=== PATIENT | male | born 1980 | race Hispanic/Latino ===

== ENCOUNTER 2017-11-10 15:31 | Emergency (ER) | payer OTHER, SELFPAY ==
[2017-11-10] MEDS ORDERED: NA CHLORIDE 0.9% 1,000 ML ONE (15:48)
[2017-11-10 16:04] LABS: Protime INR 1.06
[2017-11-10 16:21] LABS: ALT/SGPT 85 U/L (12-78); AST/SGOT 25 U/L (15-37); Albumin 3.9 g/dL (3.4-5.0); Alkaline Phosphatase 64 U/L (45-117); BUN Blood Urea Nitrogen 12 mg/dL (7-18); Bicarbonate 26 mmol/L (21-32); Bilirubin Direct 0.2 mg/dL (0-0.2); Bilirubin Total 0.7 mg/dL (0.2-1.0); Glucose Level 95 mg/dL (74-106); Potassium 3.4 mmol/L (3.5-5.1); Protein, Total 6.9 g/dL (6.4-8.2); Sodium Level 144 mmol/L (136-145)
[2017-11-10 16:22] LABS: Alcohol Serum/Plasma < 3 mg/dL (0-3)
--- NOTE | 2017-11-10 17:26 | EDPHYS ---
Physician Documentation [facility] Name: Tolu Snider Age: 37 yrs Sex: Male : 1980 Arrival Date: 11/10/2017 Time: 15:33 Bed 4 Private MD: ED Physician Benny Early HPI: 11/10 15:41 This 37 yrs old Male presents to ER via EMS with complaints of possible drug rn overdose. 15:41 Per EMS, found in hot vehicle . rn 15:42 EMS states found in hot vehicle, side of road, AC off, unsure length of time there, rn police states hx of drug overdose, patient states took 4 norco tablets for his chronic pain, denies other drugs or ETOH, was sonorous on scene, given narcan by EMS with immediate response. Pt denies suicidal thoughts or intention.. Onset: The symptoms/episode began/occurred just prior to arrival. Severity of symptoms: At their worst the symptoms were moderate in the emergency department the symptoms have improved. The patient has experienced similar episodes in the past. The patient has not recently seen a physician. Historical: - Allergies: 15:41 Sulfa (Sulfonamide Antibiotics); tw2 - Home Meds: 15:41 Ambien Oral [Active]; hydrocodone-acetaminophen 10-500 mg Oral tab [Active]; tw2 - Immunization history:: Adult Immunizations up to date. - Social history:: Smoking status: Patient uses tobacco products, smokes one-half pack cigarettes per day, Patient/guardian denies using street drugs. - Family history:: not pertinent. - Ebola Screening: : Patient negative for fever greater than or equal to 101.5 degrees Fahrenheit, and additional compatible Ebola Virus Disease symptoms Patient denies exposure to infectious person Patient denies travel to an Ebola-affected area in the 21 days before illness onset No symptoms or risks identified at this time. - Hospitalizations: : No recent hospitalization is reported. ROS: 15:42 Constitutional: Negative for fever, chills, and weight loss, Eyes: Negative for injury, rn pain, redness, and discharge, Neck: Negative for injury, pain, and swelling, Cardiovascular: Negative for chest pain, palpitations, and edema, Respiratory: Negative for shortness of breath, cough, wheezing, and pleuritic chest pain, Abdomen/GI: Negative for abdominal pain, nausea, vomiting, diarrhea, and constipation, Back: Negative for injury and pain, MS/Extremity: Negative for injury and deformity, Skin: Negative for injury, rash, and discoloration, Neuro: Negative for headache, weakness, numbness, tingling, and seizure. Exam: 15:42 Constitutional: This is a well developed, well nourished patient who is awake, slurred rn speech, tremulous Head/Face: Normocephalic, atraumatic. Eyes: Pupils equal round and reactive to light, extra-ocular motions intact. Lids and lashes normal. Conjunctiva and sclera are non-icteric and not injected. Cornea within normal limits. Periorbital areas with no swelling, redness, or edema. ENT: dry MM, + tongue fasciculations Cardiovascular: tachycardic, regular, no murmur Respiratory: Lungs have equal breath sounds bilaterally, clear to auscultation and percussion. No rales, rhonchi or wheezes noted. No increased work of breathing, no retractions or nasal flaring. Abdomen/GI: Soft, non-tender, with normal bowel sounds. No distension or tympany. No guarding or rebound. No evidence of tenderness throughout. MS/ Extremity: Pulses equal, no cyanosis. Neurovascular intact. Full, normal range of motion. Equal circumference. Neuro: Awake, GCS 15, oriented to person, place, time, and situation. Cranial nerves II-XII grossly intact. Motor strength 5/5 in all extremities. Sensory grossly intact. + extremity tremors upper arms. Vital Signs: 15:42 BP 112 / 68; Pulse 98; Resp 16; Temp 98.6(O); Pulse Ox 99% on R/A; tw2 16:01 BP 121 / 78; Pulse 121; Resp 22; Pulse Ox 97% on R/A; tw2 16:30 BP 123 / 83; Pulse 108; Resp 18; Pulse Ox 98% on R/A; tw2 17:21 BP 123 / 80; Pulse 110; Resp 16; Pulse Ox 98% on R/A; tw2 MDM: 15:34 Patient medically screened. rn 17:22 Differential Diagnosis narcotic overdose, dehydration, heat exhaustion. Data reviewed: rn vital signs, nurses notes, lab test result(s), EKG. Counseling: I had a detailed discussion with the patient and/or guardian regarding: the historical points, exam findings, and any diagnostic results supporting the discharge/admit diagnosis, lab results, the need for outpatient follow up, to return to the emergency department if symptoms worsen or persist or if there are any questions or concerns that arise at home. Response to treatment: the patient's symptoms have markedly improved after treatment, the patient's condition has returned to base line, the patient is now symptom free, and as a result, I will discharge patient. Refusal of service: The patient/guardian displays adequate decision making capability and despite a detailed discussion of alternatives, benefits, risks, and consequences refuses: urine testing. ED course: Pt states ready to go, mother here to take him home, states feels fine, no complaints at the moment. . 17:22 ED course: Has been wide awake while here, no need for repeat narcan, keeps calling rn nurse in room demanding IV get removed, wants to leave, refuses further care.. 11/10 15:40 Order name: Basic Metabolic Panel; Complete Time: 17: rn 11/10 15:42 Order name: Tylenol Level; Complete Time: 17: rn 11/10 15:42 Order name: LFT's; Complete Time: 17: rn 11/10 15:42 Order name: PT-INR; Complete Time: 17: rn 11/10 16:10 Order name: LAB Add On bd 11/10 15:40 Order name: IV Start; Complete Time: 15:56 11/10 15:40 Order name: EKG; Complete Time: 15:41 rn 11/10 15:40 Order name: EKG - Nurse/Tech; Complete Time: 15:56 11/10 16:11 Order name: Alcohol Serum/Plasma; Complete Time: 17:21 EDMS Administered Medications: 15:48 Drug: NS 0.9% 1000 ml Route: IV; Rate: 1000 ml; Site: left antecubital; ae1 17:28 Follow up: IV Status: Completed infusion ae1 Disposition: 11/10/17 17:25 Discharged to Home. Impression: Adverse effect of other narcotics, Heat exhaustion, unspecified, Tachycardia, unspecified. - Condition is Stable. - Discharge Instructions: Opioid Overdose, Sinus Tachycardia. - Medication Reconciliation Form, Thank You Letter, Antibiotic Education, Prescription Opioid Use form. - Follow up: Private Physician; When: As needed; Reason: Recheck today's complaints, Re-evaluation by your physician. - Problem is new. - Symptoms have improved. Signatures: Dispatcher [employer] EDMS Benny Early MD MD rn Wise, Tara, RN RN tw2 Tomas Mims RN RN ae1 Corrections: (The following items were deleted from the chart) 15:44 15:42 EMS states found in hot vehicle, side of road, AC off, unsure length of time rn there, police states hx of drug overdose, patient states took 4 norco tablets for his chronic pain, denies other drugs or ETOH, was sonorous on scene, given narcan by EMS with immediate response. . rn 17:31 17:25 11/10/2017 17:25 Discharged to Home. Impression: Adverse effect of other ae1 narcotics; Heat exhaustion, unspecified; Tachycardia, unspecified. Condition is Stable. Forms are Medication Reconciliation Form, Thank You Letter, Antibiotic Education, Prescription Opioid Use. Follow up: Private Physician; When: As needed; Reason: Recheck today's complaints, Re-evaluation by your physician. Problem is new. Symptoms have improved. rn
--- NOTE | 2017-11-10 17:26 | ER ---
Nurse's Notes [facility] Name: Tolu Snider Age: 37 yrs Sex: Male : 1980 Arrival Date: 11/10/2017 Time: 15:33 Bed 4 Private MD: Diagnosis: Adverse effect of other narcotics;Heat exhaustion, unspecified;Tachycardia, unspecified Presentation: 11/10 15:30 Presenting complaint: EMS states: pt was found passed out in the middle of the road in tw2 his car, witnesses called 911, when we arrived he was unresponsive, sternal rubs enough aroused him, got him in stretcher, snoring respirations, pinpoint pupils, 18LEFT ac, 1mg Narcan with good pt response, pt awake and states states he took medication for his back, Hydrocodone 10 mg. Transition of care: patient was not received from another setting of care. Onset of symptoms was November 10, 2017. Risk Assessment: Do you want to hurt yourself or someone else? Patient reports no desire to harm self or others. Initial Sepsis Screen: Does the patient meet any 2 criteria? No. Patient's initial sepsis screen is negative. Does the patient have a suspected source of infection? No. Patient's initial sepsis screen is negative. Care prior to arrival: Medication(s) given: 1mg Narcan given IV initiated. 18 GA, in the left antecubital area, Oxygen administered. via nasal cannula. 15:30 Method Of Arrival: EMS: [facility] tw2 15:30 Acuity: ANTHONY 2 tw2 15:37 Acuity: ANTHONY 2 ae1 Triage Assessment: 15:35 General: Appears in no apparent distress. comfortable, Behavior is cooperative, drowsy. ae1 Pain: Denies pain. EENT: No signs and/or symptoms were reported regarding the EENT system. Neuro: Level of Consciousness is awake, obeys commands, Drowsy. Oriented to person, place. Cardiovascular: Heart tones S1 S2 present Patient's skin is warm and dry. Respiratory: Airway is patent Respiratory effort is even, unlabored, Respiratory pattern is regular, symmetrical, Breath sounds are clear bilaterally. GI: No signs and/or symptoms were reported involving the gastrointestinal system. Bowel sounds present X 4 quads. : No signs and/or symptoms were reported regarding the genitourinary system. Derm: Skin is normal. Musculoskeletal: No signs and/or symptoms reported regarding the musculoskeletal system. Historical: - Allergies: 15:41 Sulfa (Sulfonamide Antibiotics); tw2 - Home Meds: 15:41 Ambien Oral [Active]; hydrocodone-acetaminophen 10-500 mg Oral tab [Active]; tw2 - Immunization history:: Adult Immunizations up to date. - Social history:: Smoking status: Patient uses tobacco products, smokes one-half pack cigarettes per day, Patient/guardian denies using street drugs. - Family history:: not pertinent. - Ebola Screening: : Patient negative for fever greater than or equal to 101.5 degrees Fahrenheit, and additional compatible Ebola Virus Disease symptoms Patient denies exposure to infectious person Patient denies travel to an Ebola-affected area in the 21 days before illness onset No symptoms or risks identified at this time. - Hospitalizations: : No recent hospitalization is reported. Screenin:45 Abuse screen: Denies threats or abuse. Nutritional screening: No deficits noted. tw2 Tuberculosis screening: No symptoms or risk factors identified. Fall Risk None identified. Assessment: 15:44 Reassessment: see triage assessment. tw2 16:45 Reassessment: Patient appears in no apparent distress at this time. Patient is lying in ae1 bed with eyes closed, respirations even and unlabored. Mother of patient at bedside. 17:00 Reassessment: Patient is more alert, speech mildly slurred. States, "I got comfortable".ae1 17:17 Reassessment: Patient appears in no apparent distress at this time. No changes from tw2 previously documented assessment. Patient and/or family updated on plan of care and expected duration. Pain level reassessed. Patient is alert, oriented x 3, equal unlabored respirations, skin warm/dry/pink. 17:24 Reassessment: Patient states he wants to leave and "what am I waiting on?". patient ae1 states he is not going to provide a urine sample. Provider notified. Provider went to bedside to discuss plan of care. Vital Signs: 15:42 BP 112 / 68; Pulse 98; Resp 16; Temp 98.6(O); Pulse Ox 99% on R/A; tw2 16:01 BP 121 / 78; Pulse 121; Resp 22; Pulse Ox 97% on R/A; tw2 16:30 BP 123 / 83; Pulse 108; Resp 18; Pulse Ox 98% on R/A; tw2 17:21 BP 123 / 80; Pulse 110; Resp 16; Pulse Ox 98% on R/A; tw2 ED Course: 15:30 quality assurance monitor chassis on. Pulse ox on. NIBP on. provider Dr. Early at bedside. tw2 15:33 Patient arrived in ED. [facility] 15:34 Benny Early MD is Attending Physician. rn 15:35 Kavita Garcia, SAKSHI is Primary Nurse. tw2 15:37 Triage completed. ae1 15:39 Arm band placed on. tw2 15:39 Bed in low position. Call light in reach. Side rails up X2. tw2 15:50 EKG done, by ED staff, reviewed by Bneny Early MD. jb1 17:26 No provider procedures requiring assistance completed. IV discontinued, intact, ae1 bleeding controlled, No redness/swelling at site. Pressure dressing applied. Administered Medications: 15:48 Drug: NS 0.9% 1000 ml Route: IV; Rate: 1000 ml; Site: left antecubital; ae1 17:28 Follow up: IV Status: Completed infusion ae1 Outcome: 17:25 Discharge ordered by . rn 17:30 Discharged to home ambulatory, with family. ae1 17:30 Condition: stable 17:30 Discharge instructions given to patient, family, Instructed on discharge instructions, follow up and referral plans. Demonstrated understanding of instructions. 17:31 Patient left the ED. ae1 Signatures: Tomi Last jb1 Jose Cook PA PA [facility] Benny Early MD MD rn Wise, Tara, RN RN tw2 Tomas Mims RN RN ae1 Corrections: (The following items were deleted from the chart) 15:46 15:42 BP 112 / 68; Pulse 88bpm; Resp 16bpm; Pulse Ox 99% RA; Temp 98.6F Oral; tw2 tw2 17:21 16:24 BP 127 / 88; Pulse 110bpm; Resp 16bpm; Pulse Ox 98% RA; ae1 tw2 17:21 17:17 BP 165 / 88; Pulse 56bpm; Resp 16bpm; Pulse Ox 98% RA; tw2 tw2 17:26 17:21 BP 123 / 80; Pulse 110bpm; Resp 10bpm; Pulse Ox 98% RA; tw2 tw2
[2017-11-10 17:36] VITALS: TEMP 98.6
[2017-11-10 17:38] VITALS: O2SAT 98
[2017-11-10 17:39] VITALS: BP 123/80
--- NOTE | 2017-11-12 07:45 | EKG ---
Test Date: 2017-11-10 Test Time: 15:44:25 Warehouse Logistics Manager: EVERARDO MEASUREMENT RESULTS: Intervals: Rate: 119 ME: 126 QRSD: 98 QT: 338 QTc: 475 Concho: P: 48 ME: 126 QRS: 30 T: 78 INTERPRETIVE STATEMENTS: Sinus tachycardia Nonspecific T wave abnormality Abnormal ECG Compared to ECG 06/17/2016 11:46:49 No significant changes Electronically Signed On 11-12-17 07:44:40 CDT by Edgardo Benoit
== END 2017-11-10 17:31 | disposition home or self-care (01) ==
LOC: ER 15:31
DX: R00.0 Tachycardia, unspecified (principal); T67.5XXA Heat exhaustion, unspecified, initial encounter; T40.695A Adverse effect of other narcotics, initial encounter; F17.210 Nicotine dependence, cigarettes, uncomplicated; X58.XXXA Exposure to other specified factors, initial encounter; Y93.9 Activity, unspecified; Y99.9 Unspecified external cause status; Y92.9 Unspecified place or not applicable; Z88.2 Allergy status to sulfonamides
CPT/HCPCS: 36415; 80048; 80076; 80320; 80329; 85610; 93005; 96360; 96361; 99284; J7030